=== PATIENT | female | born 1965 | race Caucasian/White ===

== ENCOUNTER 2020-08-23 08:14 | Day surgery (SDC) | payer BC ==
[~2020-08-23 08:14] MED LIST: Sodium Chloride 0.9% 10 ML ONE
--- NOTE | 2020-08-23 10:06 | MRI ---
MRI of thebrain with and without contrast: 08/23/2020 COMPARISON:None available HISTORY:Bilateral pulsatile tinnitus TECHNIQUE: Multiplanar multisequence MR imaging of thebrain with and without contrast using the inter nal auditory canal protocol Findings:The diffusion weighted imaging demonstrates no evidence for acute infarction. The paranasal sinuses and mastoid air cells are unremarkable. Regional bone marrow signal intensity within normal limits. Thin section T2 weighted imaging demonstrates no evidence for mass at the CP angle on either side. No rmal T2 signal noted within the internal auditory canal, cochlea, vestibule, and semicircular canals bilaterally. There is a vascular loop of the anterior inferior cerebellar artery extending int o the internal auditory canal bilaterally, right more prominent than left. Arterial structures are better assessed on recent MR angiogram performed 07/07/2020. No midline shift or mass effect. No ventricular enlargement. Postcontrast imaging demonstrates no evidence for abnormal enhancement otherwise within the internal auditory canal. No enhancing lesion in the CP angle, cochlea, vestibule, or semicircular canals. Whole brain postcontrast imaging unremarkable. 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
[2020-08-23] MEDS ORDERED: Magnevist 469MG/ML 20 ML VIAL ONE (10:40)
--- NOTE | 2020-08-23 12:38 | RAD ---
Exam: Lumbar puncture with fluoroscopic guidance EXPOSURE: 0.8 minutes. 300.8 microgray/M2. HISTORY: Pulsatile tinnitus. 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 Lumbar spine vertebral body heights are maintained. No fracture. Straightening of normal lumbar lordosis. No spondylolisthesis or spondylolysis. Disc space heights are preserved. Visualized sacrum and bony pelvis are unremarkable. Successful lumbar puncture. Opening pressures 24 cm of water. 8 mL of clear CSF was collected. Closin g pressure is 17 cm per water. TECHNIQUE: Consent obtained to perform a lumbar puncture with fluoroscopic guidance. The L3-L4 level was deemed appropriate. Skin was prepped and draped in a sterile fashion. 1% lidocaine, buffered with sodium bicarbonate was used for local anesthesia. Under fluoroscopic guidance, 22-gauge spinal needle was ad vanced into the CSF space. There is prompt flow of clear CSF into the hub of the needle. Via a short tubing catheter, total of 8 mL of CSF was collected. Opening pressure and closing pressure was determined with a manometer. IMPRESSION: 1. Successful lumbar puncture. 2. Opening pressure is 24 cm of water. Closing pressure is 17 cm of water. Normal range is between 5 to 25 cm water. Transcribed Date/Time: 08/23/2020 12:37 PM
[2020-08-23 13:57] VITALS: BP 138/91; TEMP 98.6
== END 2020-08-23 12:20 | disposition home or self-care (01) ==
LOC: RAD 08:14
PROVIDERS: ATTEND Otolaryngology Otology & Neurotology
PROC: 00JU3ZZ Inspection of Spinal Canal, Percutaneous Approach (ICD-10-PCS; principal; 2020-08-23)
DX: H93.A3 Pulsatile tinnitus, bilateral (principal); H90.8 Mixed conductive and sensorineural hearing loss, unspecified; Z79.899 Other long term (current) drug therapy
CPT/HCPCS: 62270; 70553; A9579